=== PATIENT | male | born 1985 | race Caucasian/White ===

== ENCOUNTER 2021-02-15 10:46 | Outpatient (RCR) | payer OTHER, SELFPAY ==
[2019-10-30 10:13] VITALS: BMI 20.2
== END 2021-04-10 23:59 ==
LOC: IMMUN 10:46
PROVIDERS: Referring Provider Family Medicine; Visit Provider Family Medicine
DX: Z23 Encounter for immunization (principal)
CPT/HCPCS: 0001A; 0002A; 91300

== ENCOUNTER → 2021-10-24 | Outpatient (CLI) | payer OTHER, SELFPAY | END | disposition home or self-care (01) | LOC: LABSPEC 08:20 | PROVIDERS: Referring Provider Physician Assistant; Visit Provider Physician Assistant | DX: Z11.52 Encounter for screening for COVID-19 (principal) | CPT/HCPCS: 87635; U0005; U0003 ==

== ENCOUNTER → 2023-04-17 | Outpatient (CLI) | payer OTHER, SELFPAY ==
--- NOTE | 2023-04-17 09:08 | RAD_ITS ---
STUDY: X-RAY - BILATERAL RIBS REASON FOR EXAM: Male, 38 years old. Right rib protusion, pain TECHNIQUE: 6 view(s) of the ribs. COMPARISON: None. FINDINGS: Normal visualized ribs without a demonstrated fracture. The visualized lungs are clear and expanded. Normal heart, mediastinum and pulmonary david. RAD/Ribs Bilat 3V No CXR IMPRESSION: Normal x-ray examination of the bilateral ribs. Electronically Signed: Santy Ortega MD at 20:44 EDT ,
[2023-04-17 10:20] LABS: Absolute Lymphocyte Count 1.49 X10^3/uL (0.83-4.51); Basophil# 0.04 X10^3/uL; Basophil% 0.8 % (0-1); Eosinophil# 0.02 X10^3/uL; Eosinophils% 0.4 % (0-5); Hematocrit 44.3 % (40-54); Hemoglobin 14.5 g/dL (13.0-16.5); Lymphocyte # 1.49 X10^3/ul (0.83-4.51); Mean Corp Hgb Conc 32.7 g/dL (32-36); Mean Corpuscular Hgb 31.7 pg (27.0-32.0); Mean Corpuscular Volume 96.7 fL (80-94); Mean Platelet Vol. 10.1 fl (6.2-12.0); Monocyte# 0.59 X10^3/uL; Monocyte% 11.5 % (0-10); NRBC Flagged by Analyzer 0 % (0-5); Neutrophil # 2.99 X10^3/uL (2.7-7.7); Neutrophil % 58.1 % (47-70); Platelet Count 326 K/mm3 (150-450); RBC Distribution Width CV 11.9 % (11.6-14.6); RBC Distribution Width SD 42.2 fl (35.1-43.9); Red Blood Count 4.58 M/mm3 (4.6-6.2); White Blood Count 5.1 K/mm3 (4.4-11.0)
[2023-04-17 11:17] LABS: ALB/GLOB Ratio 1.2 RATIO (0.9-2.4); AST(SGOT) 17 U/L (15-37); Alanine Aminotransfer ALT/SGPT 30 U/L (16-61); Albumin, Serum 4.2 g/dL (3.2-5.0); Alkaline Phosphatase 59 U/L (45-117); Anion Gap 6 (5-15); BUN 17 mg/dL (7-18); BUN/Creat Ratio 19.8 RATIO (10-20); Calcium,Total 9.4 mg/dL (8.5-10.1); Chloride 103 mmol/L (98-107); Cholesterol 186 mg/dL (200); Creatinine, Serum 0.86 mg/dL (0.70-1.30); EST Glomerular Filtration Rate 105 mL/min (>60); Est Glom Filt Rate - Afr Amer 127 mL/min (>60); Globulin 3.4 g/dL (2.2-4.2); Glucose 96 mg/dL (74-106); High Density Lipoprotein 102 mg/dL; Protein, Total 7.6 g/dL (6.4-8.2); Sodium Level 136 mmol/L (136-145); Thyroid Stim Hormone (TSH) 1.13 uIU/mL (0.358-3.74); Triglycerides 59 mg/dL; Very Low Density Lipoprotein 12 mg/dL (5-40)
[2023-04-18 22:07] LABS: Lead, Blood Adult 16+yrs 5.6 ug/dL (0.0-3.4)
== END | disposition home or self-care (01) ==
LOC: MTLAB 09:08
PROVIDERS: PCP Family Medicine; Referring Provider Family Medicine; Visit Provider Family Medicine
DX: Z00.00 Encounter for general adult medical examination without abnormal findings (principal); Q76.6 Other congenital malformations of ribs; I95.9 Hypotension, unspecified; Z77.011 Contact with and (suspected) exposure to lead; Z13.1 Encounter for screening for diabetes mellitus
CPT/HCPCS: 36415; 71110; 80053; 80061; 83655; 84443; 85025

== ENCOUNTER 2023-06-10 07:00 | Outpatient (RCR) | payer OTHER, SELFPAY ==
--- NOTE | 2023-04-17 18:32 | HP.PTEVAL_ITS ---
Patient's Visit Information BISMARK MORALES is a 38 year old M referred to Physical Therapy by Dr. Tete Barrios DC with a diagnosis of SCOLIOSIS ,SEGMENTAL AND SOMATIC DYSFUNCTION OF THORACIC ,DORSALGIA. Date of Evaluation: 04/17/23 Physical Therapist: Kristopher Glass, PT, Cert MDT, OCS - Visit Plan Frequency: 2x /Week Duration: 4 Weeks Plan: PT INTERVTIONS THIRACIC STRENGTHENING ,POSTURAL EX'S ,THORACICV STRETCHING AND CORE STRENGTHENING - Subjective This 38 y/o male presents to physical therapy with with thoracic pain and scoliosis. Patient has had thoracic pain ~ 2months not specific etiology. Patient seen chiropractor helped with some of the pain . Patient has had scoliosis since child. Seen DR did x-rays and pain medication. Patient located right scapular region thoracic spine. Aggravating factors sitting in SUV, laying on back and job demands. Alleviating factors activity and stretching. Denies paresthesia/tingling. Bowel/bladder-. Coughing /sneezing -. Patient condition affects QOL and and job demands . Patient goals to have no pain. SOCAIL: . VOCATION: [employer] - Pain Bilateral Back Pain Intensity (Out of 10): 1 Pain Intensity Range: 10 Comment: worse 5/10 - Objective POSTURE: mild forward posture ,flat thoracic , right shoulder lowered ,left leg shorter. GAIT: reciprocal pattern. PALPATION: unremarkable. BUE: AROM WFL. CERVICAL ROM : flexion WFL ,rotation/lateral flexion min loss with mild pain right ,extension WFL. THORACIC ROM: flexion WNL ,extension min loss ,rotation WFL. MMT: BUE 4/5 grossly - Special Tests C/S Radiculapathy - Left Upper limb tension test: Negative C/S Radiculapathy - Right Upper limb tension test: Negative C/S Radiculapathy - Left Spurlings: Negative C/S Radiculapathy - Right Spurlings: Negative C/S Radiculapathy - Left Cervical distraction: Negative C/S Radiculapathy - Right Cervical distraction: Negative C/S Radiculapathy - Left Relief test: Negative C/S Radiculapathy - Right Relief test: Negative C/S Radiculapathy - Valsalva: Negative Cervical Sitting: Protrusion - Mechanical Response: No effect Cervical Sitting: Protrusion - Symptoms During Testing: No effect Cervical Sitting: Protrusion - Symptoms After Testing: No effect Cervical Sitting: Retraction - Mechanical Response: No effect Cervical Sitting: Retraction - Symptoms During Testing: No effect Cervical Sitting: Retraction - Symptoms After Testing: No effect Cervical Sitting: Retraction-Extension - Mechanical Response: No effect Cerv Sitting: Retraction-Extension - Symptoms During Testing: No effect Cerv Sitting: Retraction-Extension - Symptoms After Testing: No effect Cervical Sitting: Sidebend Right - Mechanical Response: No effect Cervical Sitting: Sidebend Right - Symptoms During Testing: Increases Cervical Sitting: Sidebend Right - Symptoms After Testing: No worse Cervical Sitting: Sidebend Left - Mechanical Response: No effect Cervical Sitting: Sidebend Left - Symptoms During Testing: No effect Cervical Sitting: Sidebend Left - Symptoms After Testing: No effect Cervical Sitting: Rotation Right - Mechanical Response: No effect Cervical Sitting: Rotation Right - Symptoms During Testing: Increases Cervical Sitting: Rotation Right - Symptoms After Testing: No worse Cervical Sitting: Rotation Left - Mechanical Response: No effect Cervical Sitting: Rotation Left - Symptoms During Testing: No effect Cervical Sitting: Rotation Left - Symptoms After Testing: No effect Cervical Sitting: Flexion - Mechanical Response: No effect Cervical Sitting: Flexion - Symptoms During Testing: No effect Cervical Sitting: Flexion - Symptoms After Testing: No effect Thoracic Sitting: Flexion - Mechanical Response: No effect Thoracic Sitting: Flexion - Symptoms During Testing: No effect Thoracic Sitting: Flexion - Symptoms After Testing: No effect Thoracic Sitting: Extension - Mechanical Response: No effect Thoracic Sitting: Extension - Symptoms During Testing: No effect Thoracic Sitting: Extension - Symptoms After Testing: No effect Thoracic Sitting: Right rotation - Mechanical Response: No effect Thoracic Sitting: Right Rotation - Symptoms During Testing: No effect Thoracic Sitting: Right Rotation - Symptoms After Testing: No effect Thoracic Sitting: Left rotation - Mechanical Response: No effect Thoracic Sitting: Left Rotation - Symptoms During Testing: No effect Thoracic Sitting: Left Rotation - Symptoms After Testing: No effect - Balance/Special Test Scores Oswestry Low Back Score: 11 - Goals Goal 1:: Patient to be I with HEP Goal Time Frame: 4-6 Weeks Goal 2:: Patient to improve posture for ADLS Goal Time Frame: 4-6 Weeks Goal 3:: Patient to demonstrate 70% improvement with with less pain and improved function Goal Time Frame: 4-6 Weeks Goal 4:: Patient to improve lumbar ROM for function of recovery for job demands Goal Time Frame: 4-6 Weeks Goal 5:: Patient to improve back oswestry score by 5 points or > to improve function Goal Time Frame: 4-6 Weeks - Rehabilitation Potential Physical Therapy Diagnosis: This patient has thoracic pain with h/o scoliosis with pain worse with pain worse with positioning and motion testing and long with postural asymmetries thus will benefit from skilled PT Rehabilitation Potential: Good - Anticipated Interventions Patient/Client Instruction: Educate patient on: Condition, Plan of Care For the Purpose of:: To decrease pain, To increase ROM, To improve muscle performance and motor function, To improve ability to perform ADL's, To increase tolerance to activity/condition/position, To improve ability of physical actions for home/community/work/leisure, To improve health of tissue, To decrease soft tissue restriction, To increase flexibility/ROM Therapeutic Exercise to Include: Strength training, Body mechanics, Postural training, Flexibilty training, Dynamic Lumbar Stabilization Comment: THORACIC For the Purpose of:: To decrease pain, To increase ROM, To improve muscle performance and motor function, To improve ability to perform ADL's, To increase tolerance to activity/condition/position, To improve ability of physical actions for home/community/work/leisure, To improve health of tissue, To decrease soft tissue restriction, To increase flexibility/ROM Thank you for the opportunity to evaluate your patient. For Medicare and Medicare HMO plans, please review the plan of care and approve it. It will need to be FAXED BACK to us at [phone] for Medicare purposes. For Medicare only, by signing this I certify the plan of care. Please let me know if there are questions or concerns regarding this plan of care. Physician Signature: D ate:
--- NOTE | 2023-06-10 07:41 | HP.PTDCSUM ---
Discharge Summary D/C summary: It has been my pleasure to treat BISMARK MORALES referred by Dr. Tete Barrios DC, with the diagnosis of SCOLIOSIS ,SEGMENTAL AND SOMATIC DYSFUNCTION OF THORACIC ,DORSALGIA for a total of 8 visit(s). Discharge Date: 06/10/23 Please see the following information for a summary of their discharge status. Subjective Subjective: Feeling better Pain Bilateral Back: Pain Intensity (Out of 10): 1 Overall Improvement % Improvement: 70 Objective Objective/Function: POSTURE: mild forward posture ,flat thoracic , right shoulder lowered ,left leg shorter. GAIT: reciprocal pattern. PALPATION: unremarkable. BUE: AROM WFL. CERVICAL ROM : flexion WFL ,rotation/lateral flexion min loss with mild pain right ,extension WFL. THORACIC ROM: flexion WNL ,extension min loss ,rotation WFL. MMT: BUE 4/5 grossly Goals Goal 1:: Patient to be I with HEP Goal Progress: Goal Met Goal 2:: Patient to improve posture for ADLS Goal Progress: Goal Met Goal 3:: Patient to demonstrate 70% improvement with with less pain and improved function Goal 4:: Patient to improve lumbar ROM for function of recovery for job demands Goal Progress: Goal Met Goal 5:: Patient to improve back oswestry score by 5 points or > to improve function Goal Progress: Goal Met Plan Plan: D/C D/C Information d/c sentence: If there are questions or concerns regarding this patient's physical therapy, please feel free to call me at [phone]. Thank you for the referral of this patient. Sincerely, Kristopher Glass, PT, Cert MDT, OCS Balance/Gait/Functional tests Balance/Special Test Scores Oswestry Low Back Score: 5
== END 2023-06-10 09:03 | disposition home or self-care (01) ==
LOC: PT 07:00
PROVIDERS: PCP Family Medicine; Referring Provider Chiropractor; Visit Provider Chiropractor
DX: M41.9 Scoliosis, unspecified (principal); M99.02 Segmental and somatic dysfunction of thoracic region; M54.9 Dorsalgia, unspecified
CPT/HCPCS: 97110; 97140; 97162

== ENCOUNTER → 2024-06-15 | Outpatient (CLI) | payer OTHER, SELFPAY ==
--- NOTE | 2024-06-15 10:44 | RAD_ITS ---
STUDY: X-RAY EXAMINATION: SCOLIOSIS SERIES REASON FOR EXAM: Male, 39 years old. SCOLIOSIS TECHNIQUE: 1 view(s) of the thoracolumbar spine were obtained in the upright standing position. COMPARISON: None. FINDINGS: There is a 9 degree dextroscoliosis of the thoracic spine with the apex of the convexity at the T11 level. Normal kyphosis of the thoracic spine. Normal thoracic vertebrae and endplates. Normal disc space heights of the thoracic spine. Normal lordosis of the lumbar spine. Normal lumbar vertebrae and endplates. Normal disc space heights of the lumbar spine. The soft tissue structures are unremarkable. RAD/Scoliosis 1 view IMPRESSION: Mild dextroscoliosis of the thoracic lumbar spine. Electronically Signed: Randall Rogers MD at 9:08 EDT ,
== END | disposition home or self-care (01) ==
LOC: MTRAD 10:39
PROVIDERS: PCP Family Medicine; Referring Provider Family Medicine; Visit Provider Family Medicine
DX: M41.9 Scoliosis, unspecified (principal)
CPT/HCPCS: 72081

== ENCOUNTER 2024-10-02 08:07 | Emergency (ER) | payer OTHER, SELFPAY ==
[2024-10-02] VITALS (7 sets, daily range): BP systolic 87–104; BP diastolic 57–67; PULSE 71–91; RESP 15–24; TEMP 36.9–37; O2SAT 98–100; BMI 22.2
--- NOTE | 2024-10-02 08:18 | CT_ITS ---
EXAM: CT ANGIOGRAPHY CHEST, ABDOMEN AND PELVIS WITH INTRAVENOUS CONTRAST CLINICAL INDICATION: upper back pain, seizure TECHNIQUE: Helically acquired angiography images were obtained of the chest, abdomen and pelvis with intravenous contrast. This CT exam was performed using one or more of the following dose reduction techniques: automated exposure control, adjustment of the mA and/or kV according to patient size, and/or use of iterative reconstruction technique. MIP reconstructed images were created and reviewed. CONTRAST: IV 100mL [id number] COMPARISON: No relevant prior studies available. FINDINGS: VASCULATURE: AORTA: No acute findings. Normal in caliber. No dissection. PULMONARY ARTERIES: Normal. Normal in caliber. No obvious central pulmonary embolism although this study was not performed with the pulmonary embolism protocol. GREAT VESSELS OF AORTIC ARCH: Normal. Normal in caliber. No dissection. CELIAC TRUNK AND MESENTERIC ARTERIES: No acute findings. No occlusion or significant stenosis. No dissection. RENAL ARTERIES: Small accessory left renal artery. No occlusion or significant stenosis. No dissection. ILIAC ARTERIES: No acute findings. No occlusion or significant stenosis. No dissection. CHEST: LUNGS AND PLEURAL SPACES: Peripheral bronchiectasis noted along the anterior basilar segment of the left lower lobe. No pulmonary consolidation. No mass. No pleural effusion or thickening. No pneumothorax. HEART: Normal. Normal heart size. No coronary artery calcification nor pericardial effusion. MEDIASTINUM: Normal. No mediastinal or hilar adenopathy. Esophagus is unremarkable. No hiatal hernia. ABDOMEN: LIVER: Normal. Homogeneous. No focal mass. PANCREAS: Normal. No focal cystic or solid mass. SPLEEN: Normal. Normal size without focal cystic or solid mass. ADRENALS: Normal. No nodules. KIDNEYS AND URETERS: Normal. Normal renal size and position. No hydronephrosis. STOMACH AND BOWEL: Normal. No stomach or bowel distention. No focal inflammatory change. PELVIS: APPENDIX: Appendix is visualized and normal in appearance. BLADDER: Normal. REPRODUCTIVE: Unremarkable as visualized. No mass. CHEST, ABDOMEN and PELVIS: INTRAPERITONEAL SPACE: Normal. No ascites or other fluid collection. No free air. BONES/JOINTS: Normal. No suspicious lytic or blastic abnormality. SOFT TISSUES: Normal. No discrete abdominal or pelvic wall hernia. LYMPH NODES: Normal. No enlarged lymph nodes. CT/CTA Chst, Abd, Pel W and/or WO IMPRESSION: 1. No evidence of thoracic or abdominal aortic aneurysm or dissection. 2. No acute cardiopulmonary abnormality. 3. No abdominal or pelvic abnormality. Electronically Signed: Edwin Forte MD at 9:24 EST ,
--- NOTE | 2024-10-02 08:18 | EKG12_ITS ---
Test Reason : SEIZURE Blood Pressure : */* mmHG Vent. Rate : 70 BPM Atrial Rate : 70 BPM P-R Int : 152 ms QRS Dur : 108 ms QT Int : 390 ms P-R-T Axes : 51 -70 60 degrees QTcB Int : 421 ms Normal sinus rhythm Left axis deviation Incomplete right bundle branch block Abnormal ECG Confirmed by Lg Rey ([id number]), newspaper copy editor DEANNA LOZOYA ([id number]) on 10/04/2024 11:34:46 AM Referred By: CAROLINE Confirmed By: Lg Rey
--- NOTE | 2024-10-02 08:20 | CT_ITS ---
INDICATION: seizure, head injury EXAMINATION: CTA HEAD - CTA Head and Neck W/ Contrast Injection (and W/O Contrast Images if performed) TECHNIQUE: [place]/head CT angiogram protocol was performed following IV contrast. Routine carotid CT angiogram protocol was performed without and with IV contrast. NASCET criteria using the distal ICAs for comparison were used for evaluation of stenoses. 3D reconstructions were reviewed of the CT angiogram head and neck. A radiation dose optimization technique was used for this scan. IV Contrast dosage and agent: COMPARISON: None. FINDINGS: Brain: 5 cm cystic mass involves the left temporal lobe causing mild mass effect along the inferior midbrain suggestive of an arachnoid cyst. Approximately 3 mm of midline shift to the right. No acute hemorrhage or evidence of acute ischemia. Normal reddy-white matter density distinction. Ventricles are normal. Posterior fossa is normal. 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 No significant stenosis at the visualized segments. ACOM: As above. MCAs: No significant stenosis at the visualized segments. --Posterior cerebral circulation: PCOMs: Small right P-comm is present. associate relations specialist: No significant stenosis at the visualized segments. BASILAR ARTERY: No significant stenosis. --Carotid and vertebral circulation: AORTIC ARCH AND BRANCHES: Normal anatomy, patent. Left vertebral artery arises from the aortic arch. RIGHT CCA: No occlusion, significant stenosis or dissection. RIGHT ICA: No occlusion, significant stenosis or dissection. LEFT CCA: No occlusion, significant stenosis or dissection. LEFT ICA: No occlusion, significant stenosis or dissection. RIGHT VERTEBRAL ARTERY: No occlusion, significant stenosis or dissection. LEFT VERTEBRAL ARTERY: No occlusion, significant stenosis or dissection. NECK SOFT TISSUES: Unremarkable. LUNG APICES: Clear. BONES: Unremarkable. CT/CTA Head AND Neck W/ Contrast IMPRESSION: 5 cm arachnoid cyst involving the left temporal region causing mild mass effect on the midbrain. No arterial occlusion, stenosis, dissection or intracranial aneurysm. Electronically Signed: Edwin Forte MD at 9:50 EST ,
--- NOTE | 2024-10-02 08:21 | EX.ED.DYSGE1 ---
HPI History of Present Illness Chief Complaint: Seizure Detail of Chief Complaint: Possible seizure Informant: patient, parent and family Narrative Narrative: Patient brought to the emergency department via EMS from home. Patient was having breakfast with his brother who looked back at him and noted that his eyes were rolled back in his head and his left arm was stiff out in front of him. Patient fell off his chair and struck his head. Unclear if there was a loss of consciousness but patient was very stiff and not responding to his brother. There is no shaking or seizure-like activity otherwise. EMS was called. Patient then just wanted to move around. Per EMS he was alert to person only. He has no seizure history. He had run a 5K on [employer]. He had no complaints this morning per brother. Currently he complains of upper back pain between his shoulder blades. No history of Marfan's or aortic dissection. No significant medical history other than he has had some intermittent issues with his back. He denies significant headache. He denies recent illness. [facility] Medical History Contact dermatitis due to poison henri Home Medications ?Medication ?Instructions ?Recorded ?Last Taken ?Type fluticasone propionate 50 1 spray intranasal DAILY 10/30/19 Unknown History mcg/actuation nasal spray,suspension (Flonase Allergy Relief) loratadine 10 mg capsule 10 mg PO DAILY 10/30/19 Unknown History Allergy/AdvReac Type Severity Reaction Status Date / Time No Known Allergies Allergy Unverified 04/07/23 08:10 Surgical History History of wisdom tooth extraction Social History Smoking Status: Never smoker alcohol intake: never ROS ROS ED ROS Narrative Possible seizure Review of Systems ROS Unobtainable: other Constitutional Constitutional ED: Reports lethargy; Denies chills, fever(s), sweats or weight loss Eyes Eyes: Denies blurry vision, change in vision or diplopia ENT ENT ED: Denies rhinorrhea or sore throat Cardiovascular Cardiovascular: Denies chest pain, orthopnea or racing heartbeat Respiratory/Chest Respiratory/Chest: Denies cough, dyspnea, dyspnea on exertion, orthopnea or sputum Gastrointestinal Gastrointestinal: Denies abdominal pain, diarrhea, nausea or vomiting Genitourinary Genitourinary ED: Denies dysuria, hematuria or urinary frequency Musculoskeletal Musculoskeletal: Reports back pain; Denies arthralgias, myalgias or neck pain Integumentary Denies abscess, Abrasions or rash Neurologic Neurologic: Denies headache(s) or weakness Psychiatric Psychiatric: Denies anxiety, depression or suicidal thoughts Endocrine Endocrinology: Denies polydipsia, polyphagia or polyuria Hematologic/Lymphatic Hematologic/Lymphatic: Denies easy bleeding, easy bruising or lymphadenopathy Allergic/Immunologic Allergic/Immunologic ED: Denies mouth swelling, tongue swelling or urticaria EXAM Physical Exam Narrative Exam Narrative: A and O x 3 Const Vital Signs: 10/02/24 08:07 10/02/24 10:00 10/02/24 11:02 Temperature 98.4 F Temperature Source Oral Pulse Rate 73 75 91 Respiratory Rate 15 23 H 24 H Blood Pressure 99/63 104/67 Blood Pressure Mean 75 79 Pulse Ox 99 100 100 Oxygen Delivery Method Room Air Room Air 10/02/24 11:15 10/02/24 11:29 10/02/24 12:00 Temperature 98.6 F Temperature Source Pulse Rate 80 80 71 Respiratory Rate 16 16 23 H Blood Pressure 87/58 L 87/58 L 94/65 Blood Pressure Mean 68 67 74 Pulse Ox 100 100 98 Oxygen Delivery Method Room Air Positive well nourished and well developed General Appearance ED: well developed and NAD HEENT Reports TM's clear and moist mucous membranes HEENT Narrative: Patient has area of erythema to the left posterior parietal scalp. No bony step-offs. No significant neck pain. normocephalic; Negative for atraumatic, trauma or tenderness Tympanic Membrane ED: Yes TM's clear Eyes PERRL and EOMs intact bilaterally General Eye ED: Negative for pale conjunctiva or scleral icterus Neck no lymphadenopathy, supple and no JVD General: Negative for tenderness Chest Wall inspection of chest normal and palpation of chest normal Chest: Negative for tenderness Resp normal respiratory effort and clear to auscultation bilaterally Effort and Inspection: Negative for respiratory distress or pain with movement Auscultation: Negative for rhonchi, wheezes or diminished lung sounds Cardio regular rate, regular rhythm, S1 normal heart sound, S2 normal heart sound and no murmurs Peripheral Pulses: pulses 2+ throughout GI normal to inspection, nondistended, normoactive bowel sounds, soft to palpation, non-tender, non-distended and no masses Back/Spine no CVA tenderness; Negative for no thoracic nor lumbar tenderness Back/Spine Narrative: Diffuse tenderness over the upper thoracic back and paraspinal musculature. No bony step-offs or depressions. There is no significant ecchymosis or bruising. Extremity normal to inspection General Extremety ED: Negative for edema General Extremity: Negative for edema Neuro oriented x3, CN's II-XII intact bilaterally, no sensory deficits noted and gait normal Sensorium / Orientation: awake, alert, oriented to person, oriented to place and oriented to time Motor Exam: strength 5/5 throughout and strength abnormal Psych mental status grossly normal Skin no rashes or lesions noted and no wounds MDM MDM MDM Narrative Medical decision making narrative: Patient presents to the emergency department with concern for possible seizure. On arrival to the ED he is ANO x 3 with GCS 15. He patient complaining of upper back pain. In the differential would be a new seizure disorder versus brain mass or other intracranial abnormality. He did fall and strike his head and complaining of upper back pain. IV line established. CBC with differential white count 5.6 with hemoglobin 13.2 and platelet count of 295. Chemistries unremarkable. LFTs normal. Alcohol less than 3. CTA of the chest abdomen pelvis obtained which showed no evidence of acute abnormality. Patient also had a CTA of the head and neck which showed an arachnoid cyst left side of the brain measuring 5 cm with mass effect. [place] [facility] we do not have neurosurgery here at [place] and patient and family would like to be transferred to their facility. Discussed case with transfer line who spoke with neurosurgeon after some time it passed because the neurosurgeon was in the OR. It was asked that we transfer patient to their emergency department and I spoke with Dr. Jansen in the emergency department at [facility] Who accepted transfer of patient to their facility. While we were observing the patient awaiting to talk to neurosurgery patient had another seizure lasted about a minute whole body tonic-clonic. He was given a milligram of Ativan IV. He was started on Keppra 1 g IV and he was given Decadron 10 mg IV. Patient will be transferred via ambulance [place] [facility] Lab Data Attestation: I reviewed the patient's lab results. Labs: Laboratory Results - last 24 hr 10/02/24 08:23 WBC 5.6 RBC 4.19 L Hgb 13.2 Hct 39.4 L MCV 94.0 MCH 31.5 MCHC 33.5 RDW Std Deviation 41.4 RDW Coeff of Kale 11.9 Plt Count 295 MPV 9.3 Immature Gran % (Auto) 1.200 H Neut % (Auto) 48.5 Lymph % (Auto) 40.5 [place] % (Auto) 8.4 Eos % (Auto) 0.7 Baso % (Auto) 0.7 Absolute Neuts (auto) 2.7 Absolute Lymphs (auto) 2.27 Nucleated RBC % 0 Sodium 138 Potassium 4.0 Chloride 103 Carbon Dioxide 25.0 Anion Gap 10 BUN 13 Creatinine 1.10 Estim Creat Clear Calc 98.38 Est GFR (MDRD) Af Amer 95 Est GFR (MDRD) Non-Af 78 BUN/Creatinine Ratio 11.8 Glucose 154 H Calcium 9.1 Total Bilirubin 0.80 AST 21 ALT 28 Alkaline Phosphatase 61 Total Creatine Kinase 188 Total Protein 7.0 Albumin 4.0 Globulin 3.0 Albumin/Globulin Ratio 1.3 Ethyl Alcohol < 3.0 Radiography Diagnostic Testing: Clinical Impression(s) from Imaging Studies Chest/Abdomen/Pelvis CTA 10/02/24 08:18 IMPRESSION: 1. No evidence of thoracic or abdominal aortic aneurysm or dissection. 2. No acute cardiopulmonary abnormality. 3. No abdominal or pelvic abnormality. Electronically Signed: Edwin Forte MD at 9:24 EST , Head/Neck CTA 10/02/24 08:20 IMPRESSION: 5 cm arachnoid cyst involving the left temporal region causing mild mass effect on the midbrain. No arterial occlusion, stenosis, dissection or intracranial aneurysm. Electronically Signed: Edwin Forte MD at 9:50 EST , EKG Initial EKG: Attestation: I personally reviewed and interpreted this EKG as follows: Comments: Sinus rhythm with rate of 70 bpm with incomplete right bundle branch block Discharge Plan Triage Chief Complaint: Seizure ED Provider: Aj Roberts Dx/Rx/DC Orders Clinical Impression: Arachnoid cyst, Seizure Prescriptions: No Action loratadine 10 mg capsule 10 mg PO DAILY fluticasone propionate [Flonase Allergy Relief] 50 mcg/actuation spray,suspension 1 spray INTRANASAL DAILY Rx Instructions: administer into each nostril Primary Care Provider: Prudencio Kline Referrals: Prudencio Kline MD [Primary Care Provider] - Print Language: Croatian Disposition Disposition: DC/Tx to Another Type of HCF
[2024-10-02 08:37] LABS: Absolute Lymphocyte Count 2.27 X10^3/uL (0.83-4.51); Absolute Neutrophil Count 2.7 X10^3/uL (2.0-7.7); Basophil# 0.04 X10^3/uL; Basophil% 0.7 % (0-1); Eosinophil# 0.04 X10^3/uL; Eosinophils% 0.7 % (0-5); Hematocrit 39.4 % (40-54); Hemoglobin 13.2 g/dL (13.0-16.5); Lymphocyte # 2.27 X10^3/ul (0.83-4.51); Lymphocyte % 40.5 % (19-41); Mean Corp Hgb Conc 33.5 g/dL (32-36); Mean Corpuscular Hgb 31.5 pg (27.0-32.0); Mean Platelet Vol. 9.3 fl (6.2-12.0); Monocyte# 0.47 X10^3/uL; Monocyte% 8.4 % (0-10); NRBC Flagged by Analyzer 0 % (0-5); Neutrophil # 2.72 X10^3/uL (2.7-7.7); Neutrophil % 48.5 % (47-70); Platelet Count 295 K/mm3 (150-450); RBC Distribution Width CV 11.9 % (11.6-14.6); RBC Distribution Width SD 41.4 fl (35.1-43.9); Red Blood Count 4.19 M/mm3 (4.6-6.2); White Blood Count 5.6 K/mm3 (4.4-11.0)
[2024-10-02 08:49] LABS: ALB/GLOB Ratio 1.3 RATIO (0.9-2.4); AST(SGOT) 21 U/L (15-37); Alanine Aminotransfer ALT/SGPT 28 U/L (16-61); Alkaline Phosphatase 61 U/L (45-117); Anion Gap 10 (5-15); BUN 13 mg/dL (7-18); BUN/Creat Ratio 11.8 RATIO (10-20); Calcium,Total 9.1 mg/dL (8.5-10.1); Chloride 103 mmol/L (98-107); EST Glomerular Filtration Rate 78 mL/min (>60); Est Glom Filt Rate - Afr Amer 95 mL/min (>60); Estimated Creatinine Clearance 98.38 ml/min; Glucose 154 mg/dL (74-106); Sodium Level 138 mmol/L (136-145)
[2024-10-02 08:52] LABS: Alcohol, Blood (Medical)-Serum < 3.0 mg/dL
[2024-10-02 08:53] LABS: CPK Total, Creatine Kinase 188 U/L (39-308)
[2024-10-02] MEDS: 0.9% Normal Saline (1000mL) 1,000 ML 1000 ML IV (09:03)
[2024-10-02] MEDS: LORazepam 2 MG/ML Syringe 1 MG IV (10:35)
[2024-10-02] MEDS: dexAMETHasone 10 MG/ML Vial IV (10:35)
[2024-10-02] MEDS: levETIRAcetam IV 1,000 MG/100 ML BAG 400 MG IV (10:54)
[2024-10-02] MEDS: fentaNYL 100 MCG/2 ML Ampul 50 MCG IV ×2 (10:56→13:04)
[2024-10-02] MEDS: 0.9% Normal Saline (1000mL) 1,000 ML 999 ML IV (11:21)
[2024-10-02 13:38] LABS: Amphetamine Urine VISTA NEGATIVE (<1000 ng/mL); Barbiturate Urine VISTA NEGATIVE (< 200 ng/mL); Benzodiazepine Urine VISTA NEGATIVE (< 200 ng/mL); Cocaine Urine VISTA NEGATIVE (< 300 ng/mL); Ecstacy Urine VISTA NEGATIVE (< 500 ng/mL); Methadone Urine VISTA NEGATIVE (< 300 ng/mL); PCP Urine VISTA NEGATIVE (< 25 ng/mL); THC Urine VISTA NEGATIVE (< 50 ng/mL); Vista UDS pH Range 6
== END 2024-10-02 14:02 | disposition other institution (70) ==
PROVIDERS: Emergency Provider Emergency Medicine; PCP Family Medicine; Visit Provider Emergency Medicine
DX: R56.9 Unspecified convulsions (principal); G93.0 Cerebral cysts
CPT/HCPCS: 70496; 70498; 71275; 74174; 80053; 80307; 82077; 82550; 85025; 93005; 96361; 96365; 96375; 96376; 99285; Q9967; A4216